=== PATIENT | male | born 1945 | race Caucasian/White ===

== ENCOUNTER 2017-11-08 15:07 | Emergency (ER) | payer MEDICARE, MEDICAID, SELFPAY ==
[2017-11-08 15:10] VITALS: BP 123/72; PULSE 74; RESP 15; TEMP 36.9; O2SAT 96; BMI 26.1
[2017-11-08] MEDS: Diphth,Pertuss(Acell),Tet Vac 0.5 ML Vial IM (15:45)
--- NOTE | 2017-11-08 15:45 | ED.DCSUM_ITS ---
- ER Visit Summary Date of Service: 11/08/17 Chief Complaint: [] History of Present Illness: The patient is a 72 M who was out placing tomato stakes when 1 of the stakes broke and it entered the medial aspect of his wrist and went through to the lateral aspect tenting the skin and causing a slight puncture. Unknown last tetanus. He states the sensation in his hand feels fine. He notes painful supination. He denies any significant medical problems. He denies any alcohol or tobacco use. Physical Examination: Afebrile vital signs stable Gen: Well-nourished well-developed Head: Normocephalic atraumatic Eyes: Perrl EOMI ENT: TMs clear no rhinorrhea moist mucous membranes Neck: Supple no lymphadenopathy no JVD nontender CVS: Regular rate rhythm no murmurs normal S1-S2 Respiratory: No distress clear to auscultation bilaterally chest nontender Abdomen: Soft nontender nondistended normal bowel sounds no masses Back: Nontender Extremity: There is about a 2 cm linear laceration over the medial aspect of the right wrist. This appears anterior to the bones. There is swelling going across the volar aspect to the lateral aspect with is her slight puncture wound. I can palpate a radial pulse but I cannot palpate a ulnar pulse however on bedside ultrasound distal to the wound there is ulnar pulsation of the artery. He is neurologically intact. There does not appear to be any loss of tendon function. The hands are covered in dirt. There is a 2 cm skin tear to the left dorsum of the hand. There is a clot along the wound and the wound edges are actually very well approximated. Skin: Normal color no rash Neuro: alert orientated ?3 CN II-XII intact normal strength sensation reflexes gait cerebellar Psych: Normal affect normal mood Test Results: Wrist films were obtained. These were negative for obvious foreign bodies or bony disruption. Emergency Department Course and Treatment: IV was established and the patient received Ancef. He was also received Adacel for tetanus update. I spoke with on-call orthopedics here Dr. Salinas. He is asked that I call the on-call hand surgeon for some that hand. I spoke with Dr. Gambino who recommends prophylactic antibiotics local wound care and he will see the patient on Friday. Patient's wounds were cleansed and dressed. The placed in a wrist splint. The patient was advised that this is at high risk for infection. Impression: 1. Right wrist impalement with 2 cm laceration without repair 2. Tetanus update This note was generated with [employer] dictation software. It may contain incorrect words, spelling, and punctuation that were not noted in review of the chart prior to signing ED Disposition - Plan for ED Patient: Disposition: Home or Assisted Living Chief Complaint: Upper Extremity Injury Prescriptions: Amox/Clavulanate Tablet [Augmentin Tablet] 875 mg PO Q12H #20 tab Referrals: Care Physician,No Primary [Primary Care Provider] - Additional Instructions: YOU NEED TO CALL DR CARL GAMBINO AT [facility] TO BE SEEN ON FRIDAY. WHEN CALLING THEM, TELL THEM YOU WERE SEEN IN THE EMERGENCY DEPARTMENT AND WE SPOKE WITH DR. GAMBINO WHO WOULD LIKE TO SEE YOU ON FRIDAY
--- NOTE | 2017-11-08 15:59 | RAD_ITS ---
STUDY: X-RAY - RIGHT WRIST REASON FOR EXAM: Male, 72 years old. Puncture wound. Post-removal. TECHNIQUE: 3 view(s) of the wrist were obtained. COMPARISON: None. FINDINGS: Normal visualized distal radius and ulna. Normal radiocarpal articulation. Normal distal radioulnar articulation. Normal carpal bones. Normal carpal articulations. Normal carpometacarpal articulation of the thumb. Normal second through fifth carpometacarpal articulations. Normal visualized metacarpal bones. There is focal soft tissue swelling over the radial styloid with soft tissue gas. There is no radiopaque foreign body. RAD/Wrist min 3 Views IMPRESSION: Soft tissue swelling with soft tissue gas. No radiopaque foreign body identified. Electronically Signed: Arsenio Gannon MD at 16:49 EDT , Service support ,
--- NOTE | 2017-11-08 15:59 | ED.RN ---
PT WITH SKIN TEAR ON LEFT HAND. BILATERAL HANDS COVERED IN DIRT. THIS RN SOAKED WOUNDS WITH SHURCLENS AND WATER. ARMS SCRUBBED. WOUND CLEANED WITH SURE CLEANS AND WATER. PULSES INTACT ON LEFT SIDE, +2/2. PT TOLERATED WELL. TELFA, BACITRACIN, AND GAUZE WRAP APPLIED TO LEFT HAND. PT WITH PUNCTURE ON RIGHT WRIST ENTERING ON RIGHT MEDIAL SIDE. NOT EXIT WOUND NOTED ON LATERAL SIDE, HOWEVER A HEMATOMA IS PRESENT ON RIGHT LATERAL SIDE. PT WITH STRONG RADIAL PULSE ON RIGHT SIDE, ULNAR PULSE VISIBLE ON US PER ABDELRAHMAN CASTILLO. PT WITH BLEEDING CONTROLLED. MSPS INTACT. PT HAND AND WRIST SOAKED IN SHUR CLENS, AREA SCRUBBED TO REMOVE LARGE AMOUNTS OF DIRT. PT TOLERATING WELL.
[2017-11-08] MEDS: Cefazolin 2 GM in 0.9% Normal Saline 100 ML IV (16:15)
[2017-11-08 17:20] VITALS: BP 94/62; PULSE 66; RESP 15; O2SAT 96
--- NOTE | 2017-11-08 17:47 | ED.RN ---
PT RIGHT ARM WRAPPED WITH TELFA AND GAUZE WRAP WITH PAPER TAPE.
== END 2017-11-08 17:57 | disposition home or self-care (01) ==
PROVIDERS: Emergency Provider Emergency Medicine
DX: S61.511A Laceration without foreign body of right wrist, initial encounter (principal); W26.8XXA Contact with other sharp object(s), not elsewhere classified, initial encounter; Y93.9 Activity, unspecified; Y92.89 Other specified places as the place of occurrence of the external cause; Y99.9 Unspecified external cause status; Z23 Encounter for immunization
CPT/HCPCS: 73110; 90715; 99285; J7050; A4216